=== PATIENT | male | born 1985 | race African-American/Black ===

== ENCOUNTER 2017-03-13 05:49 | Emergency (ER) | payer MEDICAID ==
[~2017-03-13] VITALS: Ht 185.4 cm; Wt 86.2 kg
--- NOTE | 2017-03-13 06:02 | NUR ---
pt ambulatory w/ steady gait for c/o depression, SI, no HI w/ plans to run into traffic x2 days, hx SI, states "In 2014, I tried to take a bunch of pills." AOx4, afebrile w/ resp even & unlabored, denies any pain, no other medical complaints at this time, cooperative w/ no acute distress noted. Pending further eval fr [facility]. pt given specimen cup & instructed to give urine sample.
--- NOTE | 2017-03-13 06:22 | NUR ---
PT WAS SEEN BY Vinny MONZON LCSW. PT [place] [facility] [place].
[2017-03-13 06:29] LABS: BASOPHILS % (AUTO) 0.5 % (0.0-2.0); EOSINOPHILS # (AUTO) 0.1 /CMM (0.0-0.7); EOSINOPHILS % (AUTO) 2.8 % (0.0-6.0); HEMATOCRIT 39 % (39-51); HEMOGLOBIN 13.1 g/dL (13.5-17.5); LYMPHOCYTES # (AUTO) 1.8 /CMM (0.8-4.8); LYMPHOCYTES % (AUTO) 34.1 % (20.0-44.0); MEAN CORPUSCULAR HEMOGLOBIN 27 PG (26.0-33.0); MEAN CORPUSCULAR HGB CONC 33 g/dl (31.0-36.0); MEAN CORPUSCULAR VOLUME 81 fL (80-96); MONOCYTES # (AUTO) 0.9 /CMM (0.1-1.30); MONOCYTES % (AUTO) 16.5 % (2.0-12.0); NEUTROPHILS # (AUTO) 2.4 /CMM (1.8-8.9); NEUTROPHILS % (AUTO) 46.1 % (43.0-81.0); PLATELET COUNT (AUTO) 220 /CMM (150-450); RDW COEFFICIENT OF VARIATION 15.3 (11.5-15.0); RED BLOOD CELL COUNT(AUTO) 4.87 MIL/uL (4.5-6.0); WHITE BLOOD COUNT (AUTO) 5.2 K/uL (4.3-11.0)
[2017-03-13 06:41] LABS: CALCIUM, SERUM 8.1 mg/dL (8.5-10.1); CARBON DIOXIDE 26 mmol/L (21-32); CHLORIDE 103 mmol/L (98-107); CREATININE 1.1 mg/dL (0.6-1.3); GLUCOSE 103 mg/dL (74-106); POTASSIUM 3.9 mmol/L (3.5-5.1); SODIUM SERUM 137 mmol/L (136-145); UREA NITROGEN, BLOOD 17 mg/dL (7-18)
[2017-03-13 06:47] LABS: ALANINE AMINOTRANSFERASE 26 U/L (12-78); ALBUMIN 3.6 g/dL (3.4-5.0); ASPARTATE AMINOTRANSFERASE 26 U/L (15-37); BILIRUBIN,DIRECT 0.1 mg/dL (0.0-0.2); BILIRUBIN,TOTAL 0.2 mg/dL (0.2-1.0); SALICYLATE 2.8 mg/dL (2.8-20.0); TOTAL PROTEIN, SERUM 8.3 g/dL (6.4-8.2)
[2017-03-13 06:58] LABS: ACETAMINOPHEN 0 ug/ml (10-30); ALCOHOL, BLOOD < 3 mg/dL (0-0); ALKALINE PHOSPHATASE 66 U/L (46-116)
[2017-03-13 07:07] LABS: APPEARANCE,URINE CLEAR (CLEAR); BILIRUBIN,URINE NEGATIVE (NEGATIVE); BLOOD, URINE NEGATIVE Ery/uL (NEGATIVE); COLOR,URINE YELLOW (YELLOW); KETONES,URINE NEGATIVE (NEGATIVE); LEUKOCYTE ESTERASE ,URINE NEGATIVE (NEGATIVE); NITRITE, URINE NEGATIVE (NEGATIVE); PROTEIN,URINE NEGATIVE (NEGATIVE); UGLUCOSE NEGATIVE (NEGATIVE); UROBILINOGEN,URINE 0.2 EU/dL (0.2)
--- NOTE | 2017-03-13 07:15 | NUR ---
REPORT GIVEN TO NILESH CARD [facility]
[2017-03-13 07:41] LABS: BAND % (MANUAL) 1 % (0.0-5.0); EOSINOPHILS % (MANUAL) 2 % (0-4); LYMPHOCYTES % (MANUAL) 36 % (16-48); MONOCYTES % (MANUAL) 8 % (0-11.0); NEUTROPHILS % (MANUAL) 53 (42-76)
--- NOTE | 2017-03-13 08:50 | NUR ---
INCOMING CALL FR [facility], SENT FAX REQUEST MD NOTE FOR PT MEDICAL CLEARANCE TO [phone].
--- NOTE | 2017-03-13 09:33 | NUR ---
S/W THERESE, KENDRA FAX RECVD. CALL [phone] FOR REPORT. REPORT GIVEN TO NILESH HAMILTON AT [facility].
--- NOTE | 2017-03-13 09:45 | NUR ---
Patient discharged to home in stable condition. Written and verbal after care instructions given. Patient verbalizes understanding of instruction.
[2017-03-13 11:24] VITALS: BP 124/71
== END 2017-03-13 11:25 | disposition home or self-care (01) ==
LOC: ER 05:49
DX: R45.851 Suicidal ideations (principal); F20.0 Paranoid schizophrenia; F31.9 Bipolar disorder, unspecified; F43.10 Post-traumatic stress disorder, unspecified; Z88.0 Allergy status to penicillin; F17.200 Nicotine dependence, unspecified, uncomplicated
CPT/HCPCS: 36415; 80048; 80076; 80305; 80329; 81001; 85025; 99284; A4606; G0480 ×2; Z7610; 81000-TC

== ENCOUNTER 2017-03-20 04:23 | Emergency (ER) | payer MEDICAID ==
[~2017-03-20] VITALS: Ht 185.4 cm; Wt 74.8 kg
[2017-03-20] MEDS ORDERED: OLANZAPINE 5 MG/TAB.RAPDIS PO ONE (05:30)
--- NOTE | 2017-03-20 05:30 | NUR ---
PT PRESENTED TO THE ER FOR MEDICAL CLEARANCE FOR ADMISSION TO [facility]. PT AMBULATED TO BED #3. URINE SAMPLE SENT TO LAB.
[2017-03-20] MEDS ORDERED: OLANZAPINE 5 MG TABLET ONE (05:33)
--- NOTE | 2017-03-20 06:00 | NUR ---
PT APPEARS TO BE RESTING COMFORTABLY WITH NO S/S OF PAIN OR DISTRESS.
--- NOTE | 2017-03-20 07:00 | NUR ---
DR. BELLO IS THE ACCEPTING MD. CALL [phone] EXT [phone] FOR REPORT.
--- NOTE | 2017-03-20 07:12 | NUR ---
CALLED TO GIVE REPORT TO HARPREET AVILEZ. UNABLE TO GIVE REPORT DUE TO SHIFT CHANGE. WAS ASKED TO CALL BACK.
--- NOTE | 2017-03-20 07:33 | NUR ---
CALLED REPORT TO NILESH HAMILTON AT [facility]. PT NEEDS A DRUG SCREEN FROM TODAY. DR SCHWARTZ IS AWARE. NEW ORDERS GIVEN.
--- NOTE | 2017-03-20 08:00 | NUR ---
Patient is resting comfortably in bed with eyes closed. Easily aroused. VSS
--- NOTE | 2017-03-20 08:52 | NUR ---
tyler associate director regulatory affairs paged [phone]
--- NOTE | 2017-03-20 08:53 | NUR ---
tyler goldbergw paged to evaluate patient in the ed.
--- NOTE | 2017-03-20 10:30 | NUR ---
Note mervat in ED - 03/20/17 at 1117 by POONAM Patient does not wish to proceed with medical care recommended by Dr. Cowan. Patient given information related to possible complications, up to and including , which could occur as a result of leaving the hospital at this time. Patient verbalizes understanding of risks involved due to leaving against medical advice. Patient has signed AMA form.
--- NOTE | 2017-03-20 10:30 | NUR ---
MITZY GALLOWAY VALUE STREAM COACH AT FOR PSYCH EVAL.
--- NOTE | 2017-03-20 11:17 | NUR ---
Patient does not wish to proceed with medical care recommended by Dr. Cowan. Patient given information related to possible complications, up to and including , which could occur as a result of leaving the hospital at this time. Patient verbalizes understanding of risks involved due to leaving against medical advice. Patient has signed AMA form.
[2017-03-20 11:19] VITALS: BP 124/71
[2017-03-20 11:54] LABS: APPEARANCE,URINE CLEAR (CLEAR); BILIRUBIN,URINE 1+ (NEGATIVE); BLOOD, URINE NEGATIVE Ery/uL (NEGATIVE); COLOR,URINE YELLOW (YELLOW); KETONES,URINE TRACE (NEGATIVE); LEUKOCYTE ESTERASE ,URINE NEGATIVE (NEGATIVE); NITRITE, URINE NEGATIVE (NEGATIVE); PROTEIN,URINE NEGATIVE (NEGATIVE); UGLUCOSE NEGATIVE (NEGATIVE); UROBILINOGEN,URINE 0.2 EU/dL (0.2)
[2017-03-20 11:54] LABS: BASOPHILS % (AUTO) 0.3 % (0.0-2.0); EOSINOPHILS # (AUTO) 0.3 /CMM (0.0-0.7); EOSINOPHILS % (AUTO) 5.3 % (0.0-6.0); HEMATOCRIT 41 % (39-51); HEMOGLOBIN 13.4 g/dL (13.5-17.5); LYMPHOCYTES % (AUTO) 34.6 % (20.0-44.0); MEAN CORPUSCULAR HEMOGLOBIN 27 PG (26.0-33.0); MEAN CORPUSCULAR HGB CONC 33 g/dl (31.0-36.0); MEAN CORPUSCULAR VOLUME 81 fL (80-96); MONOCYTES # (AUTO) 0.8 /CMM (0.1-1.30); MONOCYTES % (AUTO) 14.6 % (2.0-12.0); NEUTROPHILS # (AUTO) 2.6 /CMM (1.8-8.9); NEUTROPHILS % (AUTO) 45.2 % (43.0-81.0); PLATELET COUNT (AUTO) 175 /CMM (150-450); RED BLOOD CELL COUNT(AUTO) 5.04 MIL/uL (4.5-6.0); WHITE BLOOD COUNT (AUTO) 5.8 K/uL (4.3-11.0)
[2017-03-20 12:29] LABS: CALCIUM, SERUM 8.7 mg/dL (8.5-10.1); CARBON DIOXIDE 26 mmol/L (21-32); CHLORIDE 100 mmol/L (98-107); CREATININE 1.4 mg/dL (0.6-1.3); GLUCOSE 139 mg/dL (74-106); POTASSIUM 4.1 mmol/L (3.5-5.1); SODIUM SERUM 136 mmol/L (136-145); UREA NITROGEN, BLOOD 20 mg/dL (7-18)
[2017-03-20 12:36] LABS: ALANINE AMINOTRANSFERASE 21 U/L (12-78); ALBUMIN 3.5 g/dL (3.4-5.0); ALKALINE PHOSPHATASE 50 U/L (46-116); ASPARTATE AMINOTRANSFERASE 24 U/L (15-37); BILIRUBIN,DIRECT 0.1 mg/dL (0.0-0.2); BILIRUBIN,TOTAL 0.5 mg/dL (0.2-1.0); TOTAL PROTEIN, SERUM 8.2 g/dL (6.4-8.2)
[2017-03-20 12:41] LABS: SALICYLATE 2.4 mg/dL (2.8-20.0)
[2017-03-20 12:42] LABS: ACETAMINOPHEN > 10 ug/ml (10-30)
== END 2017-03-20 11:19 | disposition left against medical advice (07) ==
LOC: ER 04:23
DX: F20.0 Paranoid schizophrenia (principal); R45.851 Suicidal ideations; F32.9 Major depressive disorder, single episode, unspecified; F17.200 Nicotine dependence, unspecified, uncomplicated; F43.10 Post-traumatic stress disorder, unspecified; Z88.0 Allergy status to penicillin; Z91.19 Patient's noncompliance with other medical treatment and regimen
CPT/HCPCS: 36415; 80048-TC; 80076-TC; 80305; 81000-TC; 85025-TC; A4606; G0480; Z7610